=== PATIENT | female | born 1950 | race Caucasian/White ===

== ENCOUNTER 2018-10-14 17:49 | Emergency (ER) | payer OTHER ==
[~2018-10-14] VITALS: Ht 152.4 cm; Wt 102.1 kg
[~2018-10-14 17:49] MED LIST: ADULT LOW DOSE81 MG PO; CYTOMEL 5MCG TA5 MC1 PO; FAMOTIDINE; LISINOPRIL-HCT1 EAC2 PO; PROTONIX40 M2 PO; SYNTHROID150 MCG PO
[2018-10-14 19:06] LABS: URINE BILIRUBIN NEGATIVE (Negative); URINE BLOOD 1+ (Negative); URINE CLARITY CLEAR; URINE COLOR YELLOW; URINE GLUCOSE-RANDOM* NEGATIVE (Negative); URINE KETONES NEGATIVE (Negative); URINE LEUKOCYTES-REFLEX NEGATIVE (Negative); URINE NITRITE-REFLEX NEGATIVE (Negative); URINE PROTEIN (DIPSTICK) NEGATIVE (Negative); URINE SPECIFIC GRAVITY <= 1.005 (1.005-1.035); URINE UROBILINOGEN 0.2 E.U./dl (0.2-1.0)
[2018-10-14 19:07] LABS: HEMATOCRIT 39.8 % (37.0-47.0); HEMOGLOBIN 13.7 gm/dL (12.0-15.0); MCH 28.6 pg (26.0-34.0); MCHC 34.4 g/dL (28.0-37.0); RBC 4.8 mil/uL (4.20-5.00); RDW 13.9 % (10.5-14.5); WBC 11.9 thou/uL (4.0-11.0)
[2018-10-14 19:14] LABS: ANION GAP 10 mmol/L (7-16); BUN 12 mg/dL (7-18); CALCIUM 10.3 mg/dL (8.5-10.1); CHLORIDE 103 mmol/L (98-107); CO2 28 mmol/L (21-32); CREATININE 0.7 mg/dL (0.6-1.0); GLUCOSE 108 mg/dL (74-106); POTASSIUM 3.7 mmol/L (3.5-5.1); SODIUM 141 mmol/L (136-145)
[2018-10-14 19:18] LABS: BACTERIA-REFLEX 1-9 Few /HPF (None Seen); CASTS None Seen /LPF (None Seen); CRYSTALS None Seen /LPF (None Seen); SQUAMOUS 0-3 Few /LPF (0-3); URINE RBC 0-2 Rare /HPF (0-2); URINE WBC-REFLEX None Seen /HPF (0-5)
[2018-10-14 19:23] LABS: TROPONIN-I <0.06 ng/mL (<0.06)
[2018-10-14] MEDS ORDERED: CLONIDINE0.1 PO (19:32)
[2018-10-14] MEDS ORDERED: SYNTHROID125 MC1 PO (19:46)
[2018-10-14 19:56] VITALS: BP 145/78
--- NOTE | 2018-10-15 07:51 | EKG ---
[place] [address] [facility] [employer] [place] [address] ELECTROCARDIOGRAM REPORT Name: ADDISON BEDOYARICIA Nathan Room #: [facility]#: [id number] ������������������ Admission: 10/14/18 ������������������ Attend Phys: Discharge: 10/14/18 ������������������ Date of : 46 Report #: [id number] ����������������������������������������������������������������� [id number] THIS REPORT FOR: //name// [facility] ED Test Date: 2018-10-14 Test Time: 19:21:09 Pat Name: JESÚS BEDOYA Department: Room: Gender: F Manager Multicultural: as : 1950 Requested By: David Meeks Order Number: [id number] MD: Ishmael Ram Measurements Intervals [place] Rate: 69 P: 1 FL: 170 QRS: -20 QRSD: 85 T: 23 QT: 406 QTc: 435 Interpretive Statements Sinus rhythm No significant abnormality Compared to ECG 06/28/2012 12:44:50 Poor R wave progression no longer present Electronically Signed On 10-15-2018 7:50:47 ADMINISTRATIVE REPRESENTATIVE by Ishmael Ram [email or web address] ��������������������������������������������� <ELECTRONICALLY SIGNED> ���������������������������������������� By: Ishmael Ram MD, [facility] ��������������������������������������������� 10/15/18 0750 20 20 Ishmael Ram MD, FACC /EPI
== END 2018-10-14 20:00 | disposition home or self-care (01) ==
LOC: ER 17:49
PROVIDERS: Emergency Medicine
DX: I10 Essential (primary) hypertension (principal); R42 Dizziness and giddiness; R35.0 Frequency of micturition; J45.909 Unspecified asthma, uncomplicated; M19.90 Unspecified osteoarthritis, unspecified site; E66.9 Obesity, unspecified; E06.9 Thyroiditis, unspecified; Z68.41 Body mass index [BMI] 40.0-44.9, adult; Z90.49 Acquired absence of other specified parts of digestive tract; Z98.890 Other specified postprocedural states

== ENCOUNTER → 2019-10-24 | Outpatient (CLI) | payer OTHER ==
[~2019-10-24] MED LIST changes: +CLONIDINE0.1 PO; +SYNTHROID125 MC1 PO
== END ==
LOC: CAT 14:42
DX: Z13.6 Encounter for screening for cardiovascular disorders (principal); I25.10 Atherosclerotic heart disease of native coronary artery without angina pectoris; E78.00 Pure hypercholesterolemia, unspecified